=== PATIENT | female | born 1965 | race Caucasian/White ===

== ENCOUNTER 2018-07-24 06:32 | Day surgery (SDC) | payer OTHER ==
[2018-07-24] MEDS ORDERED: FENTAnyl 50 MCG/ML VIAL (09:07)
[2018-07-24] MEDS ORDERED: MIDAZOLAM 1 MG/ML 2 ML INJ ×3 (09:07)
== END 2018-07-24 12:43 | disposition home or self-care (01) ==
LOC: GIL 06:32
DX: Z12.11 Encounter for screening for malignant neoplasm of colon (principal); K64.8 Other hemorrhoids; K29.30 Chronic superficial gastritis without bleeding; B96.81 Helicobacter pylori [H. pylori] as the cause of diseases classified elsewhere; K20.9 Esophagitis, unspecified
CPT/HCPCS: 43239; 88305; 88312; 88313

== ENCOUNTER 2019-01-05 06:15 | Day surgery (SDC) | payer OTHER ==
[2019-01-05] MEDS: ACETAMINOPHEN 500 MG TAB PO (07:50)
[2019-01-05] MEDS: LACTATED RINGER'S 1,000 ML IV (07:51)
[2019-01-05] MEDS ORDERED: PROPOFOL 40 ML (08:54)
[2019-01-05] MEDS ORDERED: FENTAnyl 50 MCG/ML VIAL (08:54)
[2019-01-05] MEDS ORDERED: FAMOTIDINE 20 MG INJ (08:55)
[2019-01-05] MEDS ORDERED: ONDANSETRON 4 MG INJ (08:55)
[2019-01-05] MEDS ORDERED: METOCLOPRAMIDE 10 MG INJ (09:33)
[2019-01-05] MEDS ORDERED: CEFAZOLIN 1 GM INJ (09:44)
[2019-01-05] MEDS ORDERED: DESFLURANE 15 MIN (09:44)
[2019-01-05] MEDS ORDERED: FENTAnyl 50 MCG/ML VIAL IV ×2 (10:00)
[2019-01-05] MEDS ORDERED: OXYCODONE/ACETAMINOPHEN (5/325) TAB PO ×2 (10:00)
[2019-01-05] MEDS ORDERED: DIPHENHYDRAMINE 50 MG INJ IV (10:00)
[2019-01-05] MEDS ORDERED: morphine 2 MG INJ IV ×2 (10:00)
[2019-01-05] MEDS ORDERED: HYDROmorphONE 1 MG/5 ML IV SYRINGE IV ×3 (10:00)
[2019-01-05] MEDS ORDERED: MEPERIDINE 25 MG INJ IV (10:00)
[2019-01-05] MEDS ORDERED: ONDANSETRON 4 MG INJ IV (10:00)
[2019-01-05] MEDS ORDERED: ALBUTEROL 0.083% (NEB) 2.5 MG/3 ML AMP HHN (10:00)
[2019-01-05] MEDS ORDERED: LABETALOL HCL 20MG INJ IV (10:00)
[2019-01-05] MEDS: ACETAMINOPHEN 325 MG TAB PO (12:37)
== END 2019-01-05 13:30 | disposition home or self-care (01) ==
LOC: SDS 06:15
DX: R93.89 Abnormal findings on diagnostic imaging of other specified body structures (principal); Z78.0 Asymptomatic menopausal state
CPT/HCPCS: 58558; 84702; 86850; 86900; 86901; 88305